=== PATIENT | female | born 1985 | race Caucasian/White ===

== ENCOUNTER 2016-12-09 17:57 | Emergency (ER) | payer BC, OTHER ==
--- NOTE | 2016-12-09 18:38 | EDM.PDOC ---
ED HPI RENAL/ - General Chief Complaint: Flank Pain Stated Complaint: PAIN/KINDEY RELATED Time Seen by Provider: 12/09/16 18:37 Source of Information: Reports: Patient History Limitations: Reports: No limitations - History of Present Illness INITIAL COMMENTS - FREE TEXT/NARRATIVE: HISTORY AND PHYSICAL: [31-year-old female presenting with right flank pain] History of Present Illness: [3Clock this afternoon 4 hours ago pain started 2 right flank Review of Systems: As per history of present illness and below otherwise all systems reviewed and negative. Past medical history: As per history of present illness and as reviewed below otherwise noncontributory. Surgical history: As per history of present illness and as reviewed below otherwise noncontributory. Social history: No reported history of drug or alcohol abuse. Family history: As per history of present illness and as reviewed below otherwise noncontributory. Physical exam: Alert and oriented female does not look to be in acute distress. HEENT: Atraumatic, normocehpalic, pupils reactive, negative for conjunctival pallor or scleral icterus, mucous membranes moist, throat clear, neck supple, nontender, trachea midline. Lungs: Clear to auscultation, breath sounds equal bilaterally, chest non tender. Heart: S1S2, regular, negative for clicks, rubs, or JVD. Abdomen: Soft, nondistended, nontender. Negative for masses or hepatossplenmegaly. Negative for costovertebral tenderness. Pelvis: Stable nontender. Genitourinary: Deferred. Rectal: Deferred Extremities: Atraumatic, negative for cords or calf pain. Neurovascular unremarkable. Neuro: Awake, alert, oriented. Cranial nerves II through XII unremarkable. Cerebellum unremarkable. Motor and sensory unremarkable throughout. Exam nonfocal. Pain is rated on a scale of 8/10. Declines offer of Toradal for pain. After first refusing pain medication she requested the Toradol Diagnostics: [UA Urine culture] Therapeutics: [] Impression: [muscle spasm] Plan: [Motrin OTC 2 tabs tid prn pain Heat to the area] Definitive disposition and diagnosis as appropriate pending reevaluation and review of above. Timing/Duration: Reports: Hour(s): (since 3 pm) - Related Data Allergies/ADRs: Allergies Allergy/AdvReac Type Severity Reaction Status Date / Time No Known Allergies Allergy Verified 12/09/16 18:33 Home Meds: Home Meds . [No Known Home Meds] 12/09/16 [History] ED ROS GENERAL - Review of Systems Review Of Systems: ROS reveals no pertinent complaints other than HPI. ED EXAM, RENAL/ - Physical Exam Exam: See Below (see dictation) Course - Vital Signs Last Recorded V/S: Last Vital Signs Temp 37.1 C 12/09/16 18:34 Pulse 107 H 12/09/16 18:34 Resp 20 12/09/16 18:34 BP 135/67 12/09/16 18:34 Pulse Ox 99 12/09/16 18:34 - Orders/Labs/Meds Orders: Active Orders 24 hr Category Date Time Status CULTURE URINE [RM] Stat Lab 12/09/16 19:05 Received Ketorolac [Toradol] Med 12/09/16 20:30 Once 60 mg IM ONETIME ONE Medication Orders Ketorolac Tromethamine (Toradol) 60 mg IM ONETIME ONE Stop: 12/09/16 20:31 Labs: Laboratory Tests 12/09/16 Range/Units 19:05 Urine Color YELLOW Urine Appearance SLT CLOUDY Urine pH 5.5 (5.0-8.0) Ur Specific Forbes >= 1.030 (1.001-1.035) Urine Protein NEGATIVE (NEGATIVE) mg/dL Urine Glucose (UA) NEGATIVE (NEGATIVE) mg/dL Urine Ketones 15 H (NEGATIVE) mg/dL Urine Occult Blood NEGATIVE (NEGATIVE) Urine Nitrite NEGATIVE (NEGATIVE) Urine Bilirubin NEGATIVE (NEGATIVE) Urine Urobilinogen 0.2 (<2.0) EU/dL Ur Leukocyte Esterase NEGATIVE (NEGATIVE) Urine RBC 0-2 (0-2/HPF) Urine WBC 0-1 (0-5/HPF) Ur Epithelial Cells FEW (NONE-FEW) Urine Bacteria FEW (NEGATIVE) Urine Mucus MODERATE (NONE-MOD) Meds: Medications Generic Name Dose Route Start Last Admin Trade Name Freq PRN Reason Stop Dose Admin Ketorolac Tromethamine 60 mg 12/09/16 20:30 Toradol IM 12/09/16 20:31 ONETIME ONE Departure - Departure Time of Disposition: 20:31 Disposition: Home, Self-Care 01 Condition: good Clinical Impression: Muscle strain Instructions: Flank Pain, [id number], Pain Medicine Instructions, Easy-to- Read Forms: ED Department Discharge Additional Instructions: The following information is given to patients seen in the emergency department who are being discharged to home. This information is to outline your options for follow-up care. We provide all patients seen in our emergency department with a follow-up referral. The need for follow-up, as well as the timing and circumstances, are variable depending upon the specifics of your emergency department visit. If you don't have a primary care physician on staff, we will provide you with a referral. We always advise you to contact your personal physician following an emergency department visit to inform them of the circumstance of the visit and for follow-up with them and/or the need for any referrals to a consulting specialist. The emergency department will also refer you to a specialist when appropriate. This referral assures that you have the opportunity for followup care with a specialist. All of these measure are taken in an effort to provide you with optimal care, which includes your followup. Under all circumstances we always encourage you to contact your private physician who remains a resource for coordinating your care. When calling for followup care, please make the office aware that this follow-up is from your recent emergency room visit. If for any reason you are refused follow-up, please contact the [facility] emergency department at and asked to speak to the emergency department charge nurse. [id number] Motrin 2-3 tablets 3 times daily, be sure to Eat when taking this medicine - My Orders Last 24 Hours: My Active Orders 12/09/16 19:05 CULTURE URINE [RM] Stat 12/09/16 20:30 Ketorolac [Toradol] 60 mg IM ONETIME ONE - Assessment/Plan Last 24 Hours: My Active Orders 12/09/16 19:05 CULTURE URINE [RM] Stat 12/09/16 20:30 Ketorolac [Toradol] 60 mg IM ONETIME ONE
[2016-12-09] MEDS ORDERED: Ketorolac 60 MG/2 ML SDV IM ONE (20:30)
[2016-12-10 00:51] VITALS: BP 115/63
== END 2016-12-09 21:11 | disposition home or self-care (01) ==
LOC: MW.ED 17:57
DX: S39.011A Strain of muscle, fascia and tendon of abdomen, initial encounter (principal); M62.838 Other muscle spasm; X58.XXXA Exposure to other specified factors, initial encounter
CPT/HCPCS: 81001; 87086; 96372; 99284; J1885; 99283

== ENCOUNTER 2017-07-19 08:03 | Day surgery (SDC) | payer BC ==
[~2017-07-19 08:03] MED LIST: Lactated Ringers 1,000 ML IV SCH
--- NOTE | 2017-07-19 08:23 | PCM.PREANE ---
Preanesthetic Assessment - Anesthesia/Transfusion/Family Hx Anesthesia History: Prior Anesthesia Without Reaction Family History of Anesthesia Reaction: No Transfusion History: No Prior Transfusion(s) Intubation History: Unknown - Review of Systems General: No Symptoms Pulmonary: No Symptoms Cardiovascular: No Symptoms Gastrointestinal: No Symptoms Neurological: No Symptoms Other: Reports: None - Physical Assessment Height: 1.61 m Weight: 62.142 kg ASA Class: 1 Mental Status: Alert & Oriented x3 Airway Class: Mallampati = 2 Dentition: Reports: Normal Dentition Thyro-Mental Finger Breadths: 3 Mouth Opening Finger Breadths: 3 ROM/Head Extension: Full Lungs: Clear to Auscultation, Normal Respiratory Effort Cardiovascular: Regular Rate, Regular Rhythm - Allergies Allergies/Adverse Reactions: Allergies Allergy/AdvReac Type Severity Reaction Status Date / Time No Known Allergies Allergy Verified 12/09/16 18:33 - Blood Blood Available: No - Anesthesia Plan Pre-Op Medication Ordered: None - Acknowledgements Anesthesia Type Planned: General Anesthesia Pt an Appropriate Candidate for the Planned Anesthesia: Yes Alternatives and Risks of Anesthesia Discussed w Pt/Guardian: Yes Pt/Guardian Understands and Agrees with Anesthesia Plan: Yes PreAnesthesia Questionnaire - Past Health History Medical/Surgical History: Denies Medical/Surgical History HEENT History: Reports: Other (See Below) Other HEENT History: wears glasses Genitourinary History: Reports: None DOPSTER History: Reports: , Other (See Below) Other OB/BYN History: breast implant Musculoskeletal History: Reports: Fracture, Other (See Below) Other Musculoskeletal History: closed reduction of fx rt shoulder - Infectious Disease History Infectious Disease History: Reports: Chicken Pox - Past Surgical History Head Surgeries/Procedures: Reports: None Female Surgical History: Reports: Breast Implant Musculoskeletal Surgical History: Reports: Shoulder Surgery - SUBSTANCE USE Smoking Status *Q: Never Smoker Recreational Drug Use History: No - HOME MEDS Home Medications: Home Meds Levonorgestrel [Mirena] 1 device VAG ONETIME 07/14/17 [History] - CURRENT (IN HOUSE) MEDS Current Meds: Current Medications Lactated Ringer's (Ringers, Lactated) 1,000 mls @ 125 mls/hr IV ASDIRECTED STELLA Last Admin: 07/19/17 08:20 Dose: 125 mls/hr
[2017-07-19] MEDS ORDERED: Midazolam 1 MG/ML 2 ML SDV ONE (08:43)
[2017-07-19] MEDS ORDERED: fentaNYL 100 MCG/2 ML SDV ONE (08:43)
[2017-07-19] MEDS ORDERED: Propofol 200 MG/20 ML SDV ONE (08:43)
[2017-07-19] MEDS ORDERED: Ondansetron 4 MG/2 ML SDV ONE (08:43)
[2017-07-19] MEDS ORDERED: Ketorolac 30 MG/ML SDV ONE (08:44)
[2017-07-19] MEDS ORDERED: Meperidine PF 25 MG/ML Syringe ONE (10:24)
--- NOTE | 2017-07-19 10:33 | PCM.OPNOTE ---
- General Post-Op/Procedure Note Date of Surgery/Procedure: 07/19/17 Operative Procedure(s): Hysteroscopy and IUD removal Findings: Normal sized anterverted uterus Mirena IUD noted in the endometrial cavity Tenaculum removed and bleeding controlled with silver nitrate at 20clock position. Pre Op Diagnosis: Retained IUD Post-Op Diagnosis: s/p Hysteroscopy for retained IUD Anesthesia Technique: MAC Primary Surgeon: Brian Stevens Anesthesia Provider: Khris Nick Fluid Replacement, Intraop: 1,000 Output, Urine Amount: 5 Condition: Stable
[2017-07-19 11:07] VITALS: BP 112/68
--- NOTE | 2017-07-19 17:57 | OR ---
SURGEON: EBONY STEVENS DATE OF PROCEDURE: 07/19/2017 PREOPERATIVE DIAGNOSIS: Retained Mirena IUD. POSTOPERATIVE DIAGNOSIS: Status post retained Mirena IUD removal. ESTIMATED BLOOD LOSS: 5 mL. ANESTHESIA: Dr. Nick. IV FLUID: 1000 U/O: 5ml with straight catherization FLUID DEFICIT: 900 mL. BRIEF HISTORY: The patient is a 31-year-old, para 0, who came to the [facility] to remove the IUD, which was placed in 2011. The patient's IUD was attempted to be removed in the office; however, the patient had pain and was given the option of sonographically assisted versus office hysteroscopy versus removal in the operating room. The patient opted for removal in the operating room. As a result, the patient was scheduled for hysteroscopy IUD removal. The patient understood the risks, benefits, and alternatives and signed the consent. PROCEDURE DETAILS: The patient was taken to the operating room, where MAC anesthesia was given without difficulty. The patient was placed in the dorsal lithotomy position and the patient was prepared and draped in the normal sterile fashion. The bivalve speculum was used to expose the cervix. The tenaculum was used to grasp the anterior lip of the cervix and 5 mm hysteroscope was then inserted into the cervix under direct visualization. The bivalve speculum was then removed. The IUD was noted to be in the cavity of the uterus. Then, alligator forceps were then used through the channel to remove the IUD. The IUD was subsequently removed with the hysteroscope. The IUD was then sent for pathology. The tenaculum was then removed. The site was inspected, some oozing was noted at 2 o'clock position, which was controlled with pressure and silver nitrate. Hemostasis was noted. The patient tolerated the procedure well. All instrument and pad count were correct x2. Dr. Stevens was present for the entire procedure VAN MARRUFO /[id number] MTDAdam
== END 2017-07-19 11:42 | disposition home or self-care (01) ==
LOC: MW.SDS 08:03
PROVIDERS: ATTEND Obstetrics & Gynecology
DX: Z30.432 Encounter for removal of intrauterine contraceptive device (principal); Z98.890 Other specified postprocedural states
CPT/HCPCS: 58579; J1885; J2250; J2405; J3010; J7120; 00952; 88300; J2704

== ENCOUNTER 2018-05-12 17:32 | Emergency (ER) | payer BC ==
[2018-05-12] MEDS ORDERED: Diphtheria,Pertussis(Acell),Tetanus Vaccine 0.5 ML Syringe IM ONE (17:44)
[2018-05-12 17:53] VITALS: BP 125/53
[2018-05-12] MEDS ORDERED: Bacitracin Oint 1 GM U/D Packet ONE (17:55)
--- NOTE | 2018-05-12 17:57 | EDM.PDOC ---
ED HPI GENERAL MEDICAL PROBLEM - General Chief Complaint: Lower Extremity Injury/Pain Stated Complaint: CUT HER LEG Time Seen by Provider: 05/12/18 17:36 - History of Present Illness INITIAL COMMENTS - FREE TEXT/NARRATIVE: HISTORY AND PHYSICAL: History of present illness: Patient is a 32-year-old with a history approximately 28 week intrauterine primes who presents with concern to an injury to her right thigh and formable lacerations occurred with a garden hose patient denies up-to-date tetanus Review of systems: As per history of present illness and below otherwise all systems reviewed and negative. Past medical history: As per history of present illness and as reviewed below otherwise noncontributory. Surgical history: As per history of present illness and as reviewed below otherwise noncontributory. Social history: No reported history of drug or alcohol abuse. Family history: As per history of present illness and as reviewed below otherwise noncontributory. Physical exam: HEENT: Atraumatic, normocephalic, pupils reactive, negative for conjunctival pallor or scleral icterus, mucous membranes moist, throat clear, neck supple, nontender, trachea midline. Lungs: Clear to auscultation, breath sounds equal bilaterally, chest nontender. Heart: S1S2, regular, negative for clicks, rubs, or JVD. Abdomen: Soft, nondistended, nontender. Negative for masses or hepatosplenomegaly. Negative for costovertebral tenderness. Pelvis: Stable nontender. Genitourinary: Deferred. Rectal: Deferred. Extremities: Patient is approximately a 2 cm moderate depth laceration to her right anterior thigh good hemostasis CMS neurovascular exam is unremarkable Neuro: Awake, alert, oriented. Cranial nerves II through XII unremarkable. Cerebellum unremarkable. Motor and sensory unremarkable throughout. Exam nonfocal. Diagnostics: None Therapeutics: Tetanus was updated patient was anesthetized 1% lidocaine without epinephrine and irrigated 0.9 normal saline prepped and draped in a sterile manner closed with 4-0 nylon interrupted suture bacitracin dressing was applied Impression: #1 laceration right lower extremity #2 28 week intrauterine Definitive disposition and diagnosis as appropriate pending reevaluation and review of above. - Related Data Allergies Allergy/AdvReac Type Severity Reaction Status Date / Time No Known Allergies Allergy Verified 12/09/16 18:33 Home Meds: Home Meds Levonorgestrel [Mirena] 1 device VAG ONETIME 07/14/17 [History] Past Medical History - Past Health History Medical/Surgical History: Denies Medical/Surgical History HEENT History: Reports: Other (See Below) Other HEENT History: wears glasses Genitourinary History: Reports: None TRAFFIC LAW ATTORNEY History: Reports: , Other (See Below) Other TRAFFIC LAW ATTORNEY History: breast implant Musculoskeletal History: Reports: Fracture, Other (See Below) Other Musculoskeletal History: closed reduction of fx rt shoulder - Infectious Disease History Infectious Disease History: Reports: Chicken Pox - Past Surgical History Head Surgeries/Procedures: Reports: None Female Surgical History: Reports: Breast Implant Musculoskeletal Surgical History: Reports: Shoulder Surgery Social & Family History - Family History Family Medical History: Noncontributory - Caffeine Use Caffeine Use: Reports: Coffee Review of Systems - Review of Systems Review Of Systems: ROS reveals no pertinent complaints other than HPI. ED EXAM, GENERAL - Physical Exam Exam: See Below (See dictation) Course - Orders/Labs/Meds Orders: Active Orders 24 hr Category Date Time Status Vaccines to be Administered [RC] PER UNIT ROUTINE Care 05/12/18 17:44 Active Meds: Medications Discontinued Medications Generic Name Dose Route Start Last Admin Trade Name Freq PRN Reason Stop Dose Admin Diphtheria/Tetanus/Acell Pertussis 0.5 ml 05/12/18 17:44 Adacel IM 05/12/18 17:45 .ONCE ONE Lidocaine HCl Confirm 05/12/18 17:44 Xylocaine-Mpf 1% Administered 05/12/18 17:45 Dose 5 mls @ as directed .ROUTE .STK-MED ONE Departure - Departure Time of Disposition: 17:56 Disposition: Home, Self-Care 01 Condition: Good Clinical Impression: Laceration - Discharge Information *PRESCRIPTION DRUG MONITORING PROGRAM REVIEWED*: Not Applicable *COPY OF PRESCRIPTION DRUG MONITORING REPORT IN PATIENT VEGA: Not Applicable Referrals: PCP,None [Primary Care Provider] - Additional Instructions: The following information is given to patients seen in the emergency department who are being discharged to home. This information is to outline your options for follow-up care. We provide all patients seen in our emergency department with a follow-up referral. The need for follow-up, as well as the timing and circumstances, are variable depending upon the specifics of your emergency department visit. If you don't have a primary care physician on staff, we will provide you with a referral. We always advise you to contact your personal physician following an emergency department visit to inform them of the circumstance of the visit and for follow-up with them and/or the need for any referrals to a consulting specialist. The emergency department will also refer you to a specialist when appropriate. This referral assures that you have the opportunity for followup care with a specialist. All of these measure are taken in an effort to provide you with optimal care, which includes your followup. Under all circumstances we always encourage you to contact your private physician who remains a resource for coordinating your care. When calling for followup care, please make the office aware that this follow-up is from your recent emergency room visit. If for any reason you are refused follow-up, please contact the [facility] emergency department at and asked to speak to the emergency department charge nurse. Wound check in 48 hours suture removal 10-14 days return as needed as discussed - My Orders Last 24 Hours: My Active Orders 05/12/18 17:44 Vaccines to be Administered [RC] PER UNIT ROUTINE - Assessment/Plan Last 24 Hours: My Active Orders 05/12/18 17:44 Vaccines to be Administered [RC] PER UNIT ROUTINE
== END 2018-05-12 18:20 | disposition home or self-care (01) ==
LOC: MW.ED 17:32
DX: S71.111A Laceration without foreign body, right thigh, initial encounter (principal); O9A.213 Injury, poisoning and certain other consequences of external causes complicating pregnancy, third trimester; W22.8XXA Striking against or struck by other objects, initial encounter; Z23 Encounter for immunization
CPT/HCPCS: 12001; 90715; 99282

== ENCOUNTER 2023-12-08 13:28 | Day surgery (SDC) | payer BC ==
[~2023-12-08 13:28] MED LIST changes: +Albuterol 0.083% 2.5 MG/3 ML Neb Soln NEB PRN; +HYDROmorphone 1 MG/ML Syringe IVPUSH PRN; -Lactated Ringers 1,000 ML IV SCH; +Metoclopramide 10 MG/2 ML SDV IVPUSH PRN; +Morphine 2 MG/ML SYRINGE IVPUSH PRN; +Naloxone 0.4 MG/ML SDV IVPUSH PRN; +Ondansetron 4 MG/2 ML SDV IVPUSH PRN; +droPERidol 5 MG/2 ML SDV IVPUSH PRN; +fentaNYL 50 MCG/ML SDV IVPUSH PRN
[2023-12-08] MEDS: Lactated Ringers 1,000 ML IV SCH (14:09)
[2023-12-08] MEDS ORDERED: Bupivacaine 0.5% 30 ML SDV ONE (14:41)
[2023-12-08] MEDS ORDERED: Lidocaine 2% 5 ML SDV ONE (14:44)
[2023-12-08] MEDS ORDERED: Famotidine 20 MG/2 ML SDV ONE (14:44)
[2023-12-08] MEDS ORDERED: Bupivacaine 0.25% 30 ML SDV ONE (15:09)
[2023-12-08] MEDS ORDERED: propofoL 50 ML ONE (15:36)
[2023-12-08] MEDS ORDERED: Propofol 200 MG/20 ML SDV ONE ×2 (15:36→16:42)
[2023-12-08] MEDS ORDERED: fentaNYL 100 MCG/2 ML SDV ONE ×2 (15:37→16:04)
[2023-12-08] MEDS ORDERED: ceFAZolin 2 GM Vial ONE (15:54)
[2023-12-08] MEDS ORDERED: Water For Injection, Sterile 20 ML ONE (15:55)
[2023-12-08] MEDS ORDERED: Dexamethasone 4 MG/ML 5 ML MDV ONE (16:21)
[2023-12-08] MEDS ORDERED: Ondansetron 4 MG/2 ML SDV ONE (16:21)
[2023-12-08] MEDS ORDERED: Ketorolac 30 MG/ML SDV ONE (16:21)
[2023-12-08] MEDS: ceFAZolin 2 GM in Sodium Chloride 0.9% 50 ML IV ONE (19:34)
[2023-12-08 21:06] VITALS: BP 109/56; PULSE 71
== END 2023-12-08 20:30 | disposition home or self-care (01) ==
LOC: MW.SDS 13:28 → MW.MS 19:00 → MW.SDS 20:30
PROVIDERS: ATTEND Orthopaedic Surgery
DX: S52.571A Other intraarticular fracture of lower end of right radius, initial encounter for closed fracture (principal); L70.9 Acne, unspecified; R10.9 Unspecified abdominal pain; R39.9 Unspecified symptoms and signs involving the genitourinary system; X58.XXXA Exposure to other specified factors, initial encounter
CPT/HCPCS: 25609; 64415; 76000; 81025; C1713; J0131; J0665; J0690; J1100; J1885; J2405; J2704; J3010; J3490; J7120; 01830